=== PATIENT | female | born 1975 | race Caucasian/White ===

== ENCOUNTER 2021-08-19 12:37 | Emergency (ER) | payer BC, SELFPAY ==
[2021-08-19 14:08] VITALS: BP 132/90; PULSE 83; RESP 18; TEMP 36.9; O2SAT 98; BMI 27.4
--- NOTE | 2021-08-19 14:18 | HMH.EDUTC ---
[facility] Disposition Clinical Impression: Bronchitis Sinusitis Qualifiers: Sinusitis location: unspecified location Chronicity: acute Recurrence: non-recurrent Qualified Code(s): J01.90 - Acute sinusitis, unspecified Disposition: Home, Self-Care Condition on Discharge: Good Instructions: DI for Sinusitis, DI for Acute Bronchitis Additional Instructions: Drink plenty of fluids. Take tylenol or ibuprofen for pain or fever. Take the medications as directed. Follow up with your regular doctor. GO TO THE ER FOR ANY WORSENING SYMPTOMS Quarantine until you know the results of your covid-19 test. Notify your school or workplace of your results and follow their instructions regarding return to work/school. Don't start the oral steroids until tomorrow, since you had the shot here today. The cough medication (promethazine dm) will make you drowsy, so don't drive or operate heavy machinery after taking it. Prescriptions: Promethazine/Dextromethorphan [Promethazine-Dm Syrup] 5 ml PO Q6HP PRN #240 ml PRN Reason: Cough [facility] methylPREDNISolone [Medrol] 4 mg PO DIRECTED 6 Days #21 packet [facility]: [facility] guaiFENesin [Mucinex 600mg tablet] 1 - 2 tab PO BIDP PRN #30 tab PRN Reason: Congestion [facility] Azithromycin [Z-Mark 250mg Tab*] 250 mg PO UD DOSE PK #6 tab Transmission [facility]: [facility] Referrals: Haroon Diop [Primary Care Provider] - Forms: Work/School Release Time of Disposition: 14:46 Medical Decision Making - Medical Records Medical records reviewed: No: I reviewed the patient's medical records. - Ran Inquiry Pt receiving controlled substance: No Vital Signs: 08/19/21 14:08 08/19/21 14:48 Temperature 98.5 F 98.5 F Temperature Source Oral Pulse Rate 83 Pulse Rate [Left Brachial] 83 Respiratory Rate 18 18 Blood Pressure 132/90 Blood Pressure [Left Arm] 132/90 Blood Pressure Mean [Left Arm] 104 Blood Pressure Source [Left Arm] Automatic Cuff Blood Pressure Position [Left Arm] Sitting 02 Sat by Pulse Oximetry 98 Oxygen Delivery Method Room Air - Lab Data Lab results reviewed: Yes: I reviewed the patient's lab results. Orders (Tests/Meds): ED MEDICATIONS Discontinued Medications Generic Name Dose Route Start Last Admin Trade Name Margie PRN Reason Stop Dose Admin Dexamethasone Sodium Phosphate 8 mg 08/19/21 14:38 08/19/21 14:39 Dexamethasone 4mg/Ml 1ml Vial IM 08/19/21 14:39 8 mg ONCE ONE Administration ORDERS Category Date Time Status Covid-19 Nasal PCR ([facility]) Routine Lab 08/19/21 13:58 Received [facility] HPI - General Stated complaint: possible sinus inf Time Seen by Provider: 08/19/21 14:18 Mode of Arrival: Ambulatory Source of Information: Patient Limitations: No Limitations Description of Symptoms (Recalled from Triage Doc. by RN): C/O head and chest congestion since Tuesday HEENT Symptoms (Recalled from RN notes): Yes (Head congestion) Resp Symptoms (Recalled from RN notes): Yes (Chest congestion) Skin Symptoms (Recalled from RN notes): No MS Symptoms (Recalled from RN notes): No Functional Status (Recalled from RN notes): n/a - History of Present Illness Provider Complaint: She has had chest congestion, productive cough and sinus congestion for the past 3 days. - Related Data Previous Rx's Medication Instructions Recorded Azithromycin [Z-Mark 250mg Tab*] 250 mg PO UD DOSE PK #6 tab 08/19/21 Promethazine/Dextromethorphan 5 ml PO Q6HP PRN #240 ml 08/19/21 [Promethazine-Dm Syrup] guaiFENesin [Mucinex 600mg tablet] 1 - 2 tab PO BIDP PRN #30 tab 08/19/21 methylPREDNISolone [Medrol] 4 mg PO DIRECTED 6 Days #21 08/19/21 packet Allergies Allergy/AdvReac Type Severity Reaction Status Date / Time Sulfa (Sulfonamide Allergy Mild Unverified 05/31/17 14:18 Anti
[2021-08-19 14:48] VITALS: BP 132/90; PULSE 83; RESP 18; TEMP 36.9; O2SAT 98
== END 2021-08-19 14:52 | disposition home or self-care (01) ==
PROVIDERS: Emergency Provider Nurse Practitioner Family; PCP Internal Medicine
DX: J20.9 Acute bronchitis, unspecified (principal); J01.90 Acute sinusitis, unspecified; Z88.2 Allergy status to sulfonamides
CPT/HCPCS: 96372; 99212; C9803; G0463; U0003; U0005

== ENCOUNTER → 2022-04-14 08:36 | Outpatient (CLI) | payer BC, SELFPAY ==
--- NOTE | 2022-04-14 08:43 | XR_ITS ---
FINAL REPORT CLINICAL HISTORY: pain FINDINGS: Left foot Three views were obtained. There is no acute fracture or dislocation. There are mild degenerative changes of the 1st metatarsophalangeal joint. Small calcaneal spurs are identified. No soft tissue abnormality is identified. IMPRESSION: No acute process. Reviewed, Interpreted and Dictated by Curt Andrew III, MD Transcribed by Rosana Malone Authenticated and [facility]
== END ==
PROVIDERS: PCP Internal Medicine; Visit Provider Podiatrist
DX: M79.672 Pain in left foot (principal); G89.29 Other chronic pain
CPT/HCPCS: 73630

== ENCOUNTER 2022-05-12 10:28 | Emergency (ER) | payer BC, SELFPAY ==
[2022-05-12 11:45] VITALS: BP 153/81; PULSE 85; RESP 18; TEMP 36.9; O2SAT 98; BMI 26.6
--- NOTE | 2022-05-12 11:57 | EXP.UTC ---
Discharge Plan Disposition Patient Disposition: Home, Self-Care Condition: Good Prescriptions Prescriptions: New fluticasone propionate [Flonase Allergy Relief] 50 mcg/actuation spray,suspension 1 spray intranasal DAILY Qty: 16 0RF Rx Instructions: administer into each nostril methylprednisolone [Medrol (Mark)] 4 mg tablets,dose pack See Rx Instructions .Route .COMPLEX 6 Days Qty: 21 0RF Rx Instructions: taper pack; amoxicillin 875 mg tablet 875 mg PO Q12H Qty: 20 0RF No Action citalopram 20 mg tablet 20 mg PO DAILY Referrals Follow up/Referrals: Haroon Diop [Primary Care Provider] - See instructions Activity Restrictions/Add. Instructions Additional Instructions/Restrictions: *Monitor Temp, Over the counter Motrin or Tylenol as directed/as needed Tylenol every 4 hours and Motrin every 6 hours (as long as your family doctor has told you that you can take it) for fever or pain. and straight to ER if unable to lower temp less than 101.0 after medication given *Warm salt water gargles may help to soothe the throat *Throat Lozenges? *Warm fluids like tea with honey may help to soothe the throat? *Sleep elevated *Humidifier/Vaporizer Your throat swab was sent for culture. Those results are typically sent to your primary care. Be sure to follow up in 2-3 days with your family doctor/primary care physician if no improvement so they can review those result and treat if necessary. If you don?t have a primary care doctor, I recommend you get one but in the mean time, you will have to return to a walk in clinic Follow up IMMEDIATELY for new or worsening symptoms or no Noticeable improvement over the next 48-72 hours. 911 for difficulty breathing or swallowing Clinical Impressions Clinical Impression: Otitis media Instructions Patient Instructions: Middle Ear Infection, Ear Infections (Alternative Therapy) Discharge ED Provider: Jodie Carreon [facility] General Stated complaint: Cough, sore throat, LT ear pain, bodyaches Time Seen by Provider: 05/12/22 11:57 History of Present Illness Provider Complaint: Patient state that for the last couple of days she has been having sore throat, pain in her left ear, sinus congestion and pressure States that today it was hurting when she was swallowing and having pain shooting into left ear Related Data Home Medications Medication Instructions Recorded Confirmed citalopram 20 mg tablet 20 mg PO DAILY Anxiety 04/14/22 05/12/22 Previous Rx's Medication Instructions Recorded amoxicillin 875 mg tablet 875 mg PO Q12H #20 tabs 05/12/22 fluticasone propionate 50 1 spray intranasal DAILY #16 grams 05/12/22 mcg/actuation nasal spray,suspension (Flonase Allergy Relief) methylprednisolone 4 mg tablets in See Rx Instructions .Route 05/12/22 a dose pack (Medrol (Mark)) .COMPLEX 6 days #21 tabs Allergies Allergy/AdvReac Type Severity Reaction Status Date / Time Sulfa (Sulfonamide Allergy Mild Verified 05/12/22 12:01 Antibiotics) [SULFA (SULFONAMIDE ANTIBIOTICS)] [facility] Disclaimer: The information contained in this section may have been updated after the patient was seen, as this information can be updated by other users. Medical History (Updated 05/12/22 @ 12:10 by Jodie Carreon APRN) Anxiety Kidney stone Urinary tract infection Surgical History (Updated 04/14/22 @ 09:25 by Zandra Salgado CMA) H/O total hysterectomy History of appendectomy Hx of tonsillectomy Edgar teeth removed Family History (Updated 04/14/22 @ 09:26 by Zandra Salgado CMA) Other Cancer Coronary artery disease Hyperlipidemia Social History (Updated 04/14/22 @ 09:26 by Zandra Salgado CMA) Smoking Status: Never smoker alcohol intake: current current occupational status: employed Travel in the last 8 weeks: None ROS Obtained: Yes All systems reviewed & no additiona
[2022-05-12 12:12] LABS: UTC Strep Screen (Rapid) Negative (Negative)
[2022-05-12 12:13] VITALS: BP 153/81; PULSE 85; RESP 18; TEMP 36.9; O2SAT 98
== END 2022-05-12 12:17 | disposition home or self-care (01) ==
PROVIDERS: Emergency Provider Nurse Practitioner; PCP Internal Medicine
DX: H66.90 Otitis media, unspecified, unspecified ear (principal)
CPT/HCPCS: 87880; 99212; G0463